=== PATIENT | female | born 1935 | race Caucasian/White ===

== ENCOUNTER 2019-03-18 15:39 | Inpatient (IN) | payer MEDICARE, OTHER ==
[~2019-03-18] VITALS: Ht 175.3 cm; Wt 78.5 kg
--- OUTSIDE RECORDS SUMMARY | 2019-03-18 15:42 | XMS REPORT | Clinical Summary ---
Author Author [facility] Address Unknown Phone Unavailable Care Team Providers Care Machinery Mover Name Role Phone Blane Estrella MD PCP Allergies Comments Active Allergy Reactions Severity Noted Date Fluconazole Hives 09/22/2018 Soy Hives 09/22/2018 Medications End Date Status Medication Sig Dispensed Refills Start Date Active metoprolol succinate XL Take 50 mg by 0 (TOPROL-XL) 50 mg 24 hr mouth 2 (two) tablet times a day. Active amlodipine-benazepril Take 1 0 (LOTREL 5-10) 5-10 mg per capsule by capsule mouth daily. Active omeprazole (PriLOSEC) 20 Take 20 mg by 0 MG capsule mouth daily. Active melatonin 3 mg tablet Take 6 mg by 0 mouth daily. Active loratadine (CLARITIN) 10 Take 10 mg by 0 mg tablet mouth daily. Active Problems Not on file Encounters Care Team Description Date Type Specialty Blane Britton MD Fecal impaction (HCC) (Primary Dx); Leukocytosis, unspecified type 09/22/2018 Emergency Emergency Medicine after 03/17/2018 Social History Date Tobacco Use Types Packs/Day Years Used Never Smoker Smokeless Tobacco: Never Used Drinks/Week oz/Week Comments Alcohol Use No Alcohol Habits Answer Date Recorded How often do you have a drink containing alcohol? Never 09/22/2018 How many drinks containing alcohol do you have on Not asked a typical day when you are drinking? How often do you have six or more drinks on one Not asked occasion? Sex Assigned at Date Recorded Not on file Industry Job Start Date Occupation Not on file Not on file Not on file Travel End Travel History Travel Start No recent travel history available. Last Filed Vital Signs Reading Time Taken Comments Vital Sign 179/86 09/22/2018 8:58 PM CDT Blood Pressure 97 09/22/2018 8:58 PM CDT Pulse 36.6 C (97.8 F) 09/22/2018 3:49 PM CDT Temperature 17 09/22/2018 8:58 PM CDT Respiratory Rate 99% 09/22/2018 8:58 PM CDT Oxygen Saturation - - Inhaled Oxygen Concentration - - Weight 174 cm (5' 8.5") 09/22/2018 1:10 PM CDT Height - - Body Mass Index Plan of Treatment Health Maintenance Due Date Last Done Comments SHINGLES VACCINES (#1) 1983 65+ PNEUMOCOCCAL VACCINE 1998 (1 of 2 - PCV13) INFLUENZA VACCINE 01/31/2019 Procedures Comments Procedure Name Priority Date/Time Associated Diagnosis URINALYSIS SCREEN AND Routine 09/22/2018 MICROSCOPY, WITH REFLEX 7:00 PM CDT TO CULTURE URINE CULTURE Routine 09/22/2018 7:[address] ABDOMEN PELVIS W STAT 09/22/2018 CONTRAST 6:02 PM CDT GENERAL Routine 09/22/2018 3:10 PM CDT ESTIMATED GFR STAT 09/22/2018 2:10 PM CDT LIPASE LEVEL STAT 09/22/2018 2:10 PM CDT COMPREHENSIVE METABOLIC STAT 09/22/2018 PANEL 2:10 PM CDT HC COMPLETE BLD COUNT STAT 09/22/2018 W/AUTO DIFF 2:10 PM CDT after 03/17/2018 Results * Urinalysis screen and microscopy, with reflex to culture (09/22/2018 7:00 PM CDT) Specimen site Clean catch [facility] Color, UA Yellow [facility] Appearance, UA Clear [facility] Specific 1.018 1.001 - 1.035 [facility] gravity, [facility] pH, UA 6.0 5.0 - 8.5 [facility] Protein, UA Negative Negative [facility] Glucose, UA Negative Negative [facility] Ketones, UA Negative Negative [facility] Bilirubin, UA Negative Negative [facility] Blood, UA Negative Negative [facility] Nitrite, UA Negative Negative [facility] Urobilinogen, Negative <2.0 [facility] Leukocyte Negative Negative [facility] esterase, UA [facility] WBC, UA <1 0 - 5 /HPF [facility] RBC, UA None seen 0 - 5 /HPF [facility] Bacteria, UA None seen None seen [facility] Yeast, UA None seen [facility] Yeast with None seen [facility] pseudohyphae, [facility] Specimen Urine Performing Organization Address City/[facility]/Zipcode Phone Number [facility] [place] [place] [address] PATHOLOGY AND GENOMIC MEDICINE [address] * Urine culture (09/22/2018 7:00 PM CDT) Urine culture SEE COMMENTComment: [facility] Bacteriuria screen negative. [facility] Specimen Urine Performing Organization Address City/[facility] [place] [address] PATHOLOGY AND GENOMIC MEDICINE [address] * CT Abdomen Pelvis W Contrast (09/22/2018 6:02 PM CDT) Specimen Narrative Performed At EXAMINATION:CT ABDOMEN PELVIS W CONTRAST [facility] CLINICAL HISTORY: 83 yearsFemale abd pain constipation TECHNIQUE: Multiple axial images of the abdomen and pelvis were obtained following intravenous administration of iodinated contrast. Sagittal and coronal computerized reformatted images were also obtained. CT imaging was performed with iterative reconstruction techniques and/or automated exposure control to reduce radiation dose. COMPARISON:None. IMPRESSION: LUNG BASES: Lung bases are unremarkable. ABDOMEN: Liver: Mild decreased attenuation of the liver is compatible with fatty infiltration. A tiny cyst in the medial segment left hepatic lobe is 5 mm. Gallbladder/Biliary: There is cholelithiasis.There is no evidence of intra or extrahepatic biliary ductal dilatation. Spleen: There is mild splenomegaly. The spleen is 13.2 cm in length. Pancreas: The pancreas is unremarkable. Adrenal Glands: Left adrenal is unremarkable. Right adrenal coarse calcification is likely related to old infection or hemorrhage and is 11 mm. Kidneys: There is a right renal cyst measuring 2 cm. Vascular: The abdominal aorta is nonaneurysmal. Nodes: No enlarged retroperitoneal or mesenteric lymphadenopathy. Bowel: There is a large amount of stool in the rectum which could be compatible with an impacted state in the appropriate clinical setting. Ascites/fluid collections: There is a small amount of presacral fluid. There is a small amount of presacral fluid. PELVIS: No mass, fluid collection or significant adenopathy. MUSCULOSKELETAL: No suspicious osseous lesions. The left breast is absent. 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 Tiny umbilical hernia containing fat only. SUMMARY: 1.Hepatic steatosis. 2.Cholelithiasis. 3.Tiny umbilical hernia 4.Mild splenomegaly 5.Large amount of stool in the rectum which could be compatible with a constipated state. [facility]-[id number] Procedure Note [facility], Radiology Results Incoming - 09/22/2018 6:13 PM CDT EXAMINATION: CT ABDOMEN PELVIS W CONTRAST CLINICAL HISTORY: 83 yearsFemale abd pain constipation TECHNIQUE: Multiple axial images of the abdomen and pelvis were obtained following intravenous administration of iodinated contrast. Sagittal and coronal computerized reformatted images were also obtained. CT imaging was performed with iterative reconstruction techniques and/or automated exposure control to reduce radiation dose. COMPARISON: None. IMPRESSION: LUNG BASES: Lung bases are unremarkable. ABDOMEN: Liver: Mild decreased attenuation of the liver is compatible with fatty infiltration. A tiny cyst in the medial segment left hepatic lobe is 5 mm. Gallbladder/Biliary: There is cholelithiasis.There is no evidence of intra or extrahepatic biliary ductal dilatation. Spleen: There is mild splenomegaly. The spleen is 13.2 cm in length. Pancreas: The pancreas is unremarkable. Adrenal Glands: Left adrenal is unremarkable. Right adrenal coarse calcification is likely related to old infection or hemorrhage and is 11 mm. Kidneys: There is a right renal cyst measuring 2 cm. Vascular: The abdominal aorta is nonaneurysmal. Nodes: No enlarged retroperitoneal or mesenteric lymphadenopathy. Bowel: There is a large amount of stool in the rectum which could be compatible with an impacted state in the appropriate clinical setting. Ascites/fluid collections: There is a small amount of presacral fluid. There is a small amount of presacral fluid. PELVIS: No mass, fluid collection or significant adenopathy. MUSCULOSKELETAL: No suspicious osseous lesions. The left breast is absent. 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 Tiny umbilical hernia containing fat only. SUMMARY: 1. Hepatic steatosis. 2. Cholelithiasis. 3. Tiny umbilical hernia 4. Mild splenomegaly 5. Large amount of stool in the rectum which could be compatible with a constipated state. [facility]-[id number] Performing Organization Address City/State/Zipcode Phone Number [facility] [address] [place] [address] * General (09/22/2018 3:10 PM CDT) Narrative Performed At Blane Britton MD 09/23/2018 10:53 AM General Performed by: Blane Britton MD Authorized by: Blane Britton MD Consent: Consent obtained:Verbal Consent given by:Patient Risks discussed:Pain (incomplete disimpaction) Alternatives discussed:No treatment and delayed treatment Indications: Indications:Constipation Anesthesia (see MAR for exact dosages): Anesthesia method:None Post-procedure details: Patient tolerance of procedure:Tolerated well, no immediate complications Comments: Pt was placed on her right side and I removed a significant amount of stool manually. * Estimated GFR (09/22/2018 2:10 PM CDT) Estimated GFR 79 mL/min/1.73 m2 [facility] Comment: DEMETRA SOARES [facility] G1 >=90 Normal or high G2 60-89Mildly decreased P3l11-37 Mildly to moderately decreased K9q84-80 Moderately to severely decreased G4 15-29Severely decreased G5 <15Kidney failure The eGFR was calculated using the Chronic Kidney Disease Epidemiology Collaboration (CKD-EPI) equation. Interpretation is based on recommendations of the National Kidney Foundation-Kidney Disease Outcomes Quality Initiative (NKF-KDOQI) published in 2014. Specimen Plasma specimen Performing Organization Address City/State/Zipcode Phone Number [facility] [address] [place] [address] PATHOLOGY AND GENOMIC MEDICINE [facility] DEMETRA SOARES [address] [place], [place] [id number] [place] [address] * CBC with platelet and differential (09/22/2018 2:10 PM CDT) WBC 22.7 (H) 4.2 - 11.0 k/uL [facility] RBC 5.25 4.04 - 5.86 m/uL [facility] HGB 13.9 11.5 - 15.3 g/dL [facility] HCT 44.0 34.0 - 45.0 % [facility] MCV 83.8 80.0 - 98.0 fL [facility] MCH 26.5 (L) 27.0 - 34.0 pg [facility] MCHC 31.6 31.5 - 36.5 g/dL [facility] RDW - SD 41.0 37.0 - 51.0 fL [facility] MPV 10.4 7.4 - 10.4 fL [facility] Platelet count 258 150 - 400 k/uL [facility] Nucleated RBC 0.00 /100 WBC [facility] Neutrophils 92.0 (H) 36.0 - 66.0 % [facility] Lymphocytes 3.3 (L) 24.0 - 44.0 % [facility] Monocytes 3.7 0.0 - 6.0 % [facility] Eosinophils 0.0 0.0 - 6.0 % [facility] Basophils 0.3 0.0 - 1.2 % [facility] Immature 0.7 0.0 - 1.0 % [facility] granulocytes [facility] Specimen Blood Performing Organization Address City/State/Zipcode Phone Number [place] [address] [place] [address] PATHOLOGY AND GENOMIC MEDICINE [place] [address] * Lipase level (09/22/2018 2:10 PM CDT) Lipase 14 13 - 60 U/L [facility] Specimen Plasma specimen Performing Organization Address City/[facility]/Zipcode Phone Number [place] [phone] [place] [address] PATHOLOGY AND GENOMIC MEDICINE [place] [address] [place], [place] [id number] [place] [address] * Comprehensive metabolic panel (09/22/2018 2:10 PM CDT) Sodium 139 135 - 150 mEq/L [facility] Potassium 3.4 (L) 3.5 - 5.0 mEq/L [facility] Chloride 98 98 - 112 mEq/L [facility] CO2 27 24 - 31 mmol/L [facility] Anion gap 14@ANIO 7 - 15 mEq/L [facility] BUN 12 7 - 18 mg/dL [facility] Creatinine 0.70 0.50 - 0.90 mg/dL [facility] Glucose 160 (H) 65 - 100 mg/dL [facility] Calcium 9.5 8.8 - 10.2 mg/dL [facility] Protein 7.5 6.3 - 8.3 g/dL [facility] Albumin 4.2 3.5 - 5.0 g/dL [facility] A/G ratio 1.3 0.7 - 3.8 [facility] Alkaline 148 (H) 0 - 104 U/L [facility] phosphatase [facility] AST 24 10 - 35 U/L [facility] ALT 22 5 - 50 U/L [facility] Total bilirubin 0.4 0.2 - 1.2 mg/dL [facility] Specimen Plasma specimen Performing Organization Address City/State/[facility] Phone Number [facility] [address] [place] [address] PATHOLOGY AND GENOMIC MEDICINE [facility] 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
[2019-03-18 16:48] LABS: BASOPHILS % 0.4 % (0.0-1.0); EOSINOPHILS # (AUTO) 0.2 (0.0-0.4); EOSINOPHILS % 1.6 % (0.0-6.0); HEMATOCRIT 43.3 % (34.2-44.1); HEMOGLOBIN 13.9 g/dL (12.0-16.0); LYMPHOCYTES # (AUTO) 1.5 (1.0-3.2); LYMPHOCYTES % 16.7 % (18.0-39.1); MEAN CORPUSCULAR HEMOGLOBIN 26.9 pg (28-32); MEAN CORPUSCULAR HGB CONC 32.1 g/dL (31-35); MEAN CORPUSCULAR VOLUME 83.9 fL (81-99); MONOCYTES # (AUTO) 0.5 (0.2-0.8); MONOCYTES % 5.4 % (4.4-11.3); NEUTROPHILS # (AUTO) 6.9 (2.1-6.9); NEUTROPHILS % 75.4 % (38.7-80.0); PLATELET COUNT 228 x10e3/uL (140-360); RED BLOOD COUNT 5.16 x10e6/uL (3.6-5.1); RED CELL DISTRIBUTION WIDTH 13.7 % (11.7-14.4)
[2019-03-18 16:53] LABS: INR 0.91; PROTHROMBIN TIME 12.7 seconds (11.9-14.5)
[2019-03-18 16:54] LABS: PARTIAL THROMBOPLASTIN TIME 30.7 seconds (23.8-35.5)
[2019-03-18 17:07] LABS: ALANINE AMINOTRANSFERASE 22 IU/L (0-55); ALBUMIN 3.7 g/dL (3.5-5.0); ALBUMIN/GLOBULIN RATIO 1.2 (0.8-2.0); ALKALINE PHOSPHATASE 114 IU/L (40-150); ANION GAP 16.5 mmol/L (8-16); BLOOD UREA NITROGEN 12 mg/dL (7-26); BUN/CREATININE RATIO 14 (6-25); CALCIUM 9.3 mg/dL (8.4-10.2); CARBON DIOXIDE 25 mmol/L (22-29); CHLORIDE 102 mmol/L (98-107); CREATINE KINASE 77 IU/L (29-168); CREATININE, SERUM 0.86 mg/dL (0.57-1.11); EST GLOMERULAR FILTRATION RATE > 60 ML/MIN (60-); GLUCOSE 185 mg/dL (74-118); POTASSIUM 3.5 mmol/L (3.5-5.1); SODIUM 140 mmol/L (136-145)
--- NOTE | 2019-03-18 17:18 | Diagnostic Imaging Report ---
EXAMINATION: CHEST 2 VIEWS INDICATION: Blurry vision COMPARISON: None FINDINGS: LINES/TUBES:None LUNGS:The lungs are mildly hyperinflated. Mild left apical pleural parenchymal thickening/scarring. No focal consolidation or pulmonary edema. PLEURA:No pleural effusion or pneumothorax. MEDIASTINUM:The cardiomediastinal silhouette appears normal in size and shape. Atherosclerotic calcifications of the thoracic aorta. BONES/SOFT TISSUES:No acute osseous injury. Surgical clips overlie the left axilla. ABDOMEN:No free air under the diaphragm. IMPRESSION: Mildly hyperinflated lungs. No focal pneumonia or pulmonary edema. Signed by: Brad Morton MD on 03/18/2019 5:15 PM
--- NOTE | 2019-03-18 17:20 | Diagnostic Imaging Report ---
CT BRAIN WO HISTORY: Blurry vision COMPARISON: None. Technique: Noncontrast axial scans were obtained from skull base to the vertex. Coronal and sagittal reconstructions obtained from the axial data. One or more of the following dose reduction techniques were used: Automated exposure control, adjustment of the mA and/or kV according to patient size, and/or utilization of iterative reconstruction technique. DISCUSSION: Scalp/Skull: Unremarkable. Brain sulci: Mildly prominent. Ventricles: Compensatory dilatation. Extra-axial spaces: No masses or fluid collections. Carotid siphon calcifications are present. Parenchyma: Focal loss of sweeney-white differentiation in the medial right occipital lobe, along the posterior right calcarine sulcus, with mild local mass effect is concerning for acute ischemia. Mild bilateral deep white matter hypodensity is likely chronic microvascular ischemic change. 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 There is also an old small right cerebellar cortical infarct. Otherwise, no masses, hemorrhage, or large vascular territory acute infarct. Dural sinuses: No abnormal densities. Sellar/Suprasellar region: Intact. Skull base: Intact. Incidental findings: Bilateral ocular lens replacement. IMPRESSION: 1. Focal loss of sweeney-white differentiation in the medial right occipital lobe is concerning for acute ischemia. No evidence for hemorrhagic conversion. 2. Mild supratentorial chronic microvascular ischemic change. Mild generalized cerebral volume loss. Signed by: Dr. Chirag De M.D. on 03/18/2019 5:17 PM
[2019-03-18] MEDS ORDERED: OMEPRAZOLE20 MG (19:45)
[2019-03-18] MEDS ORDERED: MELATONIN 5 MG1 EACH (19:45)
[2019-03-18] MEDS ORDERED: AMLODIPINE BESYL5 MG (19:45)
[2019-03-18] MEDS ORDERED: METOPROLOL SUCC50 MG (19:45)
--- NOTE | 2019-03-18 19:51 | NUR ---
dr. jacome in to see pt and has already told her about being admitted
[2019-03-18] MEDS ORDERED: ASPIRIN 81 MG CHEW TAB PO ONE (20:00)
[2019-03-18] MEDS ORDERED: ONDANSETRON HCL INJ 2MG/ML 2ML 2 MG/ML VIAL IV PRN (20:00)
--- NOTE | 2019-03-18 20:03 | NUR ---
home meds obtained from patient and entered into the computer
--- OUTSIDE RECORDS SUMMARY | 2019-03-18 20:38 | XMS REPORT ---
Author Author [facility] Address Unknown Phone Unavailable Care Team Providers Care Biology Department Chair Name Role Phone Jaylin JESSICA Unavailable Unavailable Problems This patient has no known problems. Allergies, Adverse Reactions, Alerts This patient has no known allergies or adverse reactions. Medications This patient has no known medications. Results Test Description Test Time Test Comments Text Results Atomic Results Result Comments CHEST 2 VIEWS 2019-03-18 17:14:00 [place] [address] Patient Name: REUBEN HEARD MR #: [id number] : 1935 Age/Sex: 83/F Req #: [id number] Adm Physician: Ordered by: DEEP JESSICA MD Report #: [id number] Location: ER Room/Bed: Procedure: [id number] DX/CHEST 2 VIEWS Exam Date: 03/18/19 Exam Time: 1640 REPORT STATUS: Signed EXAMINATION: CHEST 2 VIEWS INDICATION: Blurry vision COMPARISON: None FINDINGS: LINES/TUBES:None LUNGS:The lungs are mildly hyperinflated. Mild left apical pleural parenchymal thickening/scarring. No focal consolidation or pulmonary edema. PLEURA:No pleural effusion or pneumothorax. MEDIASTINUM:The cardiomediastinal silhouette appears normal in size and shape. Atherosclerotic calcifications of the thoracic aorta. BONES/SOFT TISSUES:No acute osseous injury. Surgical clips overlie the left axilla. ABDOMEN:No free air under the diaphragm. IMPRESSION: Mildly hyperinflated lungs. No focal pneumonia or pulmonary edema. Signed by: Rosio Reynoso MD on 03/18/2019 5:15 PM Dictated By: ROSIO REYNOSO MD 14 Transcribed By: RENÉE on 03/18/191714 COPY TO: DEEP JESSICA MD CT BRAIN WO 2019-03-18 17:05:00 [place] [address] Patient Name: REUBEN HEARD MR #: [id number] : 1935 Age/Sex: 83/F Req #: [id number] Adm Physician: Ordered by: DEEP JESSICA MD Report #: [id number] Location: ER Room/Bed: Procedure: [id number] CT/CT BRAIN WO Exam Date: 03/18/19 Exam Time: 1620 REPORT STATUS: Signed CT BRAIN WO HISTORY: Blurry vision COMPARISON: None. Technique: Noncontrast axial scans were obtained from skull base to the vertex. Coronal and sagittal reconstructions obtained from the axial data. One or more of the following dose reduction techniques were used: Automated exposure control, adjustment of the mA and/or kV according to patient size, and/or utilization of iterative reconstruction technique. DISCUSSION: Scalp/Skull: Unremarkable. Brain sulci: Mildly prominent. Ventricles: Compensatory dilatation. Extra-axial spaces: No masses or fluid collections. Carotid siphon calcifications are present. Parenchyma: Focal loss of sweeney-white differentiation in the medial right occipital lobe, along the posterior right calcarine sulcus, with mild local mass effect is concerning for acute ischemia. Mild bilateral deep white matter hypodensity is likely chronic microvascular ischemic change. 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 There is also an old small right c erebellar cortical infarct. Otherwise, no masses, hemorrhage, or large vascular territory acute infarct. Dural sinuses: No abnormal densities. Sellar/Suprasellar region: Intact. Skull base: Intact. Incidental findings: Bilateral ocular lens replacement. IMPRESSION: 1. Focal loss of sweeney- white differentiation in the medial right occipital lobe is concerning for acute ischemia. No evidence for hemorrhagic conversion. 2. Mild supratentorial chronic microvascular ischemic change. Mild generalized cerebral volume loss. Signed by: Dr. Chirag De M.D. on 03/18/2019 5:17 PM Dictated By: CHIRAG DE MD 16 Transcribed By: RENÉE on 03/18/191716 COPY TO: DEEP JESSICA MD
--- OUTSIDE RECORDS SUMMARY | 2019-03-18 20:38 | XMS REPORT | Clinical Summary ---
Author Author [facility] Address Unknown Phone Unavailable Care Team Providers Care Grinder Name Role Phone Blane Estrella MD PCP [...] 7:00 PM CDT) Specimen site Clean catch [facility] Color, UA Yellow [facility] Appearance, UA Clear [facility] Specific 1.018 1.001 - 1.035 [place] gravity, [facility] pH, UA 6.0 5.0 - 8.5 [facility] Protein, UA Negative Negative [facility] Glucose, UA Negative Negative [facility] Ketones, UA Negative Negative [facility] Bilirubin, UA Negative Negative [facility] Blood, UA Negative Negative [facility] Nitrite, UA Negative Negative [facility] Urobilinogen, Negative <2.0 [facility] Leukocyte Negative Negative [place] esterase, UA [facility] WBC, UA <1 0 - 5 /HPF [facility] RBC, UA None seen 0 - 5 /HPF [facility] Bacteria, UA None seen None seen [facility] Yeast, UA None seen [facility] Yeast with None seen [place] pseudohyphae, [facility] Specimen Urine Performing Organization Address City/[facility]/Zipcode Phone Number [facility] [place] [address] PATHOLOGY AND GENOMIC MEDICINE [address] * Urine culture (09/22/2018 7:00 PM CDT) Urine culture SEE COMMENTComment: [place] Bacteriuria screen negative. [facility] Specimen Urine Performing Organization Address City/[facility] [[email or web address] [address] PATHOLOGY AND GENOMIC MEDICINE [address] * CT Abdomen Pelvis W Contrast [...] could be compatible with a constipated state. [facility]-[id number] Procedure Note [facility], Radiology Results Incoming - 09/22/2018 6:13 [...] could be compatible with a constipated state. [facility]-[id number] Performing Organization Address City/State/Zipcode Phone Number [facility] [address] [place] [address] * General (09/22/2018 3:10 PM CDT) Narrative [...] PM CDT) Estimated GFR 79 mL/min/1.73 m2 [place] Comment: DEMETRA SOARES [facility] G1 >=90 Normal or high G2 60-89Mildly decreased [id number] Mildly to moderately decreased [id number] Moderately to severely decreased G4 15-29Severely decreased G5 <15Kidney failure The eGFR was calculated using the Chronic Kidney Disease Epidemiology Collaboration (CKD-EPI) equation. Interpretation is based on recommendations of the National Kidney Foundation-Kidney Disease Outcomes Quality Initiative (NKF-KDOQI) published in 2014. Specimen Plasma specimen Performing Organization Address City/State/Zipcode Phone Number [facility] [address] [place] [address] PATHOLOGY AND GENOMIC MEDICINE [place] DEMETRA SOARES [address] [place], [place] [id number] [place] [address] * CBC with platelet and differential (09/22/2018 2:10 PM CDT) WBC 22.7 (H) 4.2 - 11.0 k/uL [facility] RBC 5.25 4.04 - 5.86 m/uL [facility] HGB 13.9 11.5 - 15.3 g/dL [facility] HCT 44.0 34.0 - 45.0 % [facility] MCV 83.8 80.0 - 98.0 fL [facility] MCH 26.5 (L) 27.0 - 34.0 pg [facility] MCHC 31.6 31.5 - 36.5 g/dL [facility] RDW - SD 41.0 37.0 - 51.0 fL [facility] MPV 10.4 7.4 - 10.4 fL [facility] Platelet count 258 150 - 400 k/uL [facility] Nucleated RBC 0.00 /100 WBC [facility] Neutrophils 92.0 (H) 36.0 - 66.0 % [facility] Lymphocytes 3.3 (L) 24.0 - 44.0 % [facility] Monocytes 3.7 0.0 - 6.0 % [facility] Eosinophils 0.0 0.0 - 6.0 % [facility] Basophils 0.3 0.0 - 1.2 % [facility] Immature 0.7 0.0 - 1.0 % [place] granulocytes [facility] Specimen Blood Performing Organization Address City/State/Zipcode Phone Number [place] [address] [place] [address] PATHOLOGY AND GENOMIC MEDICINE [place] [address] * Lipase level (09/22/2018 2:10 PM CDT) Lipase 14 13 - 60 U/L [facility] Specimen Plasma specimen Performing Organization Address City/[facility]/Zipcode Phone Number [place] [phone] [place] [address] PATHOLOGY AND GENOMIC MEDICINE [place] [address] [place], [place] [id number] [place] [address] * Comprehensive metabolic panel (09/22/2018 2:10 PM CDT) Sodium 139 135 - 150 mEq/L [facility] Potassium 3.4 (L) 3.5 - 5.0 mEq/L [facility] Chloride 98 98 - 112 mEq/L [facility] CO2 27 24 - 31 mmol/L [facility] Anion gap 14@ANIO 7 - 15 mEq/L [facility] BUN 12 7 - 18 mg/dL [facility] Creatinine 0.70 0.50 - 0.90 mg/dL [facility] Glucose 160 (H) 65 - 100 mg/dL [facility] Calcium 9.5 8.8 - 10.2 mg/dL [facility] Protein 7.5 6.3 - 8.3 g/dL [facility] Albumin 4.2 3.5 - 5.0 g/dL [facility] A/G ratio 1.3 0.7 - 3.8 [facility] Alkaline 148 (H) 0 - 104 U/L [place] phosphatase [facility] AST 24 10 - 35 U/L [facility] ALT 22 5 - 50 U/L [facility] Total bilirubin 0.4 0.2 - 1.2 mg/dL [facility] Specimen Plasma specimen Performing Organization Address City/State/[facility] [email or web address] Phone Number [facility] DEPARTMENT OF [address] [place] [address] PATHOLOGY AND GENOMIC MEDICINE [facility] [address] after 03/17/2018 Insurance Type Payer Benefit Subscriber ID Effective Phone Address Plan / Dates Group HMO HUMANA MEDICARE HUMANA HMO xxxxxxxxx [id number] GOLD PLUS resent MEDICARE Advance Directives For more information, please contact: [phone] Patient Patient Care Secretary Explanation Type Date Recorded Advance Directives, 09/22/2018 5:25 PM Living Will and Medical Power of Windows [employer]
[2019-03-18 22:45] VITALS: BP 173/83
[2019-03-19] VITALS (10 sets, daily range): BP systolic 151–173; BP diastolic 76–94
[2019-03-19] MEDS ORDERED: INFLUENZA VIRUS VAC SPLIT INJ 0.5 ML SYR IM SCH (00:42)
--- NOTE | 2019-03-19 01:45 | NUR ---
PT IS TRANSFERRED FROM ER AOX3 RESPIRATIONS ARE EVEN AND UNLABORED .SKIN WARM AND DRY TO TOUCH DENIES PAIN ORIENTED THE PT TO THE ENVIRONMENT ASSESSMENT DONE .TELE 24 SHOWS SR .FAMILY AT THE BEDSIDE CALL LIGHT WITH IN REACH.CONTINUE TO MONITOR
--- NOTE | 2019-03-19 05:32 | NUR ---
PT RESTED DURING THE NIGHT .DENIES PAIN CALL LIGHT WITH IN REACH . CALL LIGHT WITH IN REACH CONTINUE TO MONITOR
[2019-03-19 06:19] LABS: BASOPHILS % 0.4 % (0.0-1.0); EOSINOPHILS # (AUTO) 0.2 (0.0-0.4); EOSINOPHILS % 2.1 % (0.0-6.0); HEMATOCRIT 40.2 % (34.2-44.1); HEMOGLOBIN 12.8 g/dL (12.0-16.0); LYMPHOCYTES # (AUTO) 1.5 (1.0-3.2); LYMPHOCYTES % 21.7 % (18.0-39.1); MEAN CORPUSCULAR HEMOGLOBIN 27.1 pg (28-32); MEAN CORPUSCULAR HGB CONC 31.8 g/dL (31-35); MEAN CORPUSCULAR VOLUME 85.2 fL (81-99); MONOCYTES # (AUTO) 0.5 (0.2-0.8); MONOCYTES % 7.4 % (4.4-11.3); NEUTROPHILS # (AUTO) 4.8 (2.1-6.9); NEUTROPHILS % 68.1 % (38.7-80.0); PLATELET COUNT 189 x10e3/uL (140-360); RED BLOOD COUNT 4.72 x10e6/uL (3.6-5.1); RED CELL DISTRIBUTION WIDTH 13.7 % (11.7-14.4)
[2019-03-19 06:49] LABS: CHOL/HDL RATIO 4.4 (3.0-3.6)
[2019-03-19 06:51] LABS: CREATINE KINASE MB 1.6 ng/mL (0-5.0)
--- NOTE | 2019-03-19 07:00 | NUR ---
RECEIVED PATIENT RESTING IN BED. NO ACUTE DISTRESS NOTED, RESPIRATIONS EVEN AND UNLABORED. CALL LIGHT WITHIN REACH. BED IN THE LOWEST POSITION.
--- NOTE | 2019-03-19 07:26 | NUR ---
PT C/O DIFFICULTY SEEING WITH RT EYE .BEDSIDE REPORT GIVEN TO THE ONCOMING NURSE
[2019-03-19] MEDS: AMLODIPINE BESYLATE 5 MG TAB PO SCH (08:32)
[2019-03-19] MEDS: METOPROLOL TARTRATE 25 MG TAB PO SCH ×2 (08:32→17:10)
[2019-03-19] MEDS: PANTOPRAZOLE SOD 40 MG TABEC PO SCH (08:32)
[2019-03-19] MEDS: ASPIRIN 81 MG ENTERIC COATED PO SCH (08:32)
[2019-03-19] MEDS ORDERED: OMEPRAZOLE 20 MG CAP PO SCH (09:00)
--- NOTE | 2019-03-19 13:39 | Diagnostic Imaging Report ---
EXAMINATION: Brain MRI and MR angiogram of the [place] and Neck . CLINICAL HISTORY: Blurry vision, head/eye pain. Evaluate for acute stroke with left homonymous hemianopsia and right cranial nerve palsy. COMPARISON: Head CT of 03/18/2019 TECHNIQUE: Brain: Sagittal T2; axial DWI, T2, FLAIR, T1-IR, T2 gradient echo; coronal FLAIR. MRAs: 3D TOF and 2D-TOF images were obtained of the brain and neck. MR angiogram images were reviewed in the [facility] PACS system as the images were incompletely transferred to [facility] PACS. BRAIN MRI FINDINGS: Parenchyma: 1. Cortical and subcortical FLAIR hyperintensity and restricted diffusion in the right posterior/medial occipital visual cortex consistent with acute infarct, no hemorrhagic component or significant associated mass effect. 2. Few scatter and mildly confluent periventricular white matter T2 hyperintense foci, most likely nonspecific chronic microvascular ischemic changes. 3. Gliosis around the left occipital horn with compensatory dilatation likely represents sequela from remote ischemic interval. 4. Tiny chronic cortical infarcts in the bilateral cerebellar hemispheres. 5. Small chronic lacunar infarcts in the right head of the caudate nucleus. 6. No mass, hemorrhage, acute or chronic infarcts. Skull: Unremarkable. Vessels: Expected flow voids present in the major arteries and dural sinuses. Extra-axial spaces: No abnormal signal intensity or mass effect. Brain volume: Prominence of the left greater than right right sylvian fissures. Otherwise no disproportionate lobar atrophy. Ventricles: No hydrocephalus or displacement. Foramen magnum: Unremarkable. Sella: Unremarkable. Paranasal / mastoid sinuses: No significant inflammatory disease. MRA OF THE [place] : Approximately 5 mm superior and anteriorly oriented aneurysm at the right supraclinoid paraophthalmic segment of the right ICA, measuring about 5 mm base to the dome, and approximately 4 mm wide neck. Occlusion of the right CORRECTIONAL COUNSELOR/CASE MANAGER P2 segment with probable thrombus within it which measures about 5 mm length, partial distal reconstitution of the P3 segment which is diffusely narrow. Mild diffuse narrowing of the distal right MCA M1 segment without significant stenosis or occlusion. Otherwise the distal internal carotid, distal vertebral, basilar, and cerebral arteries are patent. No significant stenosis, occlusion, other aneurysm, or arteriovenous malformation is seen. Anatomic variation: Anterior Communicating Artery: Patent Posterior Communicating Arteries: Not well visualized Vertebral arteries: Codominant MRA OF THE NECK: If present, stenosis of the carotid bulbs is measured based on NASCET criteria i.e area of maximum stenosis compared to the cervical ICA distal to the bulb. Aortic arch and origin of the vessels: Unremarkable. Right Carotid Artery: The common carotid, carotid bulb, internal and external carotid arteries at the level of the neck are normal in caliber, and patent, no evidence of stenoses. Left Carotid Artery: The common carotid, carotid bulb, internal and external carotid arteries at the level of the neck are normal in caliber, and patent, no evidence of stenoses. Vertebral Arteries: Poor visualization of the horizontal segment of the right V3 segment compared to the left side, partially technically related, additional underlying narrowing/thrombosis cannot be excluded. Otherwise both are normal in morphology and caliber. Both are codominant. No significant stenosis is seen. IMPRESSION: Brain MRI: 1. Acute right posterior occipital cortical infarct, which explains patient's acute visual symptoms. 2. Mild chronic microvascular ischemic changes and small chronic infarcts as detailed above. MR angiogram of the head and neck: 1. Acute occlusion of the right posterior cerebral artery at the P2 segment in keeping with acute right occipital infarct. 2. Questionable partial occlusion of the right vertebral artery V3 segment versus artifactual, a CT angiogram of the head and neck with contrast or MR angiogram of the neck with contrast can be obtained for further evaluation if clinically indicated. 3. Otherwise no occlusion of the carotid arteries in the head or neck. 4. 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 Signed by: Dr. Allison Feliciano M.D. on 03/19/2019 1:36 PM
--- NOTE | 2019-03-19 13:39 | Diagnostic Imaging Report ---
EXAMINATION: Brain MRI and MR angiogram of the [place] and [place]ck . CLINICAL HISTORY: Blurry vision, head/eye pain. Evaluate for acute stroke with left homonymous hemianopsia and right cranial nerve palsy. COMPARISON: Head CT of 03/18/2019 TECHNIQUE: Brain: Sagittal T2; axial DWI, T2, FLAIR, T1-IR, T2 gradient echo; coronal FLAIR. MRAs: 3D TOF and 2D-TOF images were obtained of the brain and neck. MR angiogram images were reviewed in the [facility] PACS system as the images were incompletely transferred to [facility] PACS. BRAIN MRI FINDINGS: Parenchyma: 1. Cortical and subcortical FLAIR hyperintensity and restricted diffusion in the right posterior/medial occipital visual cortex consistent with acute infarct, no hemorrhagic component or significant associated mass effect. 2. Few scatter and mildly confluent periventricular white matter T2 hyperintense foci, most likely nonspecific chronic microvascular ischemic changes. 3. Gliosis around the left occipital horn with compensatory dilatation likely represents sequela from remote ischemic interval. 4. Tiny chronic cortical infarcts in the bilateral cerebellar hemispheres. 5. Small chronic lacunar infarcts in the right head of the caudate nucleus. 6. No mass, hemorrhage, acute or chronic infarcts. Skull: Unremarkable. Vessels: Expected flow voids present in the major arteries and dural sinuses. Extra-axial spaces: No abnormal signal intensity or mass effect. Brain volume: Prominence of the left greater than right right sylvian fissures. Otherwise no disproportionate lobar atrophy. Ventricles: No hydrocephalus or displacement. Foramen magnum: Unremarkable. Sella: Unremarkable. Paranasal / mastoid sinuses: No significant inflammatory disease. 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 Occlusion of the right DIRECTOR CORRECTIONAL AGENCY P2 segment with probable thrombus within it which measures about 5 mm length, partial distal reconstitution of the P3 segment which is diffusely narrow. Mild diffuse narrowing of the distal right MCA M1 segment without significant stenosis or occlusion. Otherwise the distal internal carotid, distal vertebral, basilar, and cerebral arteries are patent. No significant stenosis, occlusion, other aneurysm, or arteriovenous malformation is seen. Anatomic variation: Anterior Communicating Artery: Patent Posterior Communicating Arteries: Not well visualized Vertebral arteries: Codominant MRA OF THE NECK: If present, stenosis of the carotid bulbs is measured based on NASCET criteria i.e area of maximum stenosis compared to the cervical ICA distal to the bulb. Aortic arch and origin of the vessels: Unremarkable. Right Carotid Artery: The common carotid, carotid bulb, internal and external carotid arteries at the level of the neck are normal in caliber, and patent, no evidence of stenoses. Left Carotid Artery: The common carotid, carotid bulb, internal and external carotid arteries at the level of the neck are normal in caliber, and patent, no evidence of stenoses. Vertebral Arteries: Poor visualization of the horizontal segment of the right V3 segment compared to the left side, partially technically related, additional underlying narrowing/thrombosis cannot be excluded. Otherwise both are normal in morphology and caliber. Both are codominant. No significant stenosis is seen. IMPRESSION: Brain MRI: 1. Acute right posterior occipital cortical infarct, which explains patient's acute visual symptoms. 2. Mild chronic microvascular ischemic changes and small chronic infarcts as detailed above. MR angiogram of the head and neck: 1. Acute occlusion of the right posterior cerebral artery at the P2 segment in keeping with acute right occipital infarct. 2. Questionable partial occlusion of the right vertebral artery V3 segment versus artifactual, a CT angiogram of the head and neck with contrast or MR angiogram of the neck with contrast can be obtained for further evaluation if clinically indicated. 3. Otherwise no occlusion of the carotid arteries in the head or neck. 4. 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 Signed by: Dr. Allison Feliciano M.D. on 03/19/2019 1:36 PM
--- NOTE | 2019-03-19 13:39 | Diagnostic Imaging Report ---
EXAMINATION: Brain MRI and MR angiogram of the [place] and Neck . CLINICAL HISTORY: Blurry vision, head/eye pain. Evaluate for acute stroke with left homonymous hemianopsia and right cranial nerve palsy. COMPARISON: Head CT of 03/18/2019 TECHNIQUE: Brain: Sagittal T2; axial DWI, T2, FLAIR, T1-IR, T2 gradient echo; coronal FLAIR. MRAs: 3D TOF and 2D-TOF images were obtained of the brain and neck. MR angiogram images were reviewed in the [facility] PACS system as the images were incompletely transferred to [facility] PACS. BRAIN MRI FINDINGS: Parenchyma: 1. Cortical and subcortical FLAIR hyperintensity and restricted diffusion in the right posterior/medial occipital visual cortex consistent with acute infarct, no hemorrhagic component or significant associated mass effect. 2. Few scatter and mildly confluent periventricular white matter T2 hyperintense foci, most likely nonspecific chronic microvascular ischemic changes. 3. Gliosis around the left occipital horn with compensatory dilatation likely represents sequela from remote ischemic interval. 4. Tiny chronic cortical infarcts in the bilateral cerebellar hemispheres. 5. Small chronic lacunar infarcts in the right head of the caudate nucleus. 6. No mass, hemorrhage, acute or chronic infarcts. Skull: Unremarkable. Vessels: Expected flow voids present in the major arteries and dural sinuses. Extra-axial spaces: No abnormal signal intensity or mass effect. Brain volume: Prominence of the left greater than right right sylvian fissures. Otherwise no disproportionate lobar atrophy. Ventricles: No hydrocephalus or displacement. Foramen magnum: Unremarkable. Sella: Unremarkable. Paranasal / mastoid sinuses: No significant inflammatory disease. MRA OF THE [place] : Approximately 5 mm superior and anteriorly oriented aneurysm at the right supraclinoid paraophthalmic segment of the right ICA, measuring about 5 mm base to the dome, and approximately 4 mm wide neck. Occlusion of the right ORE CRUSHER P2 segment with probable thrombus within it which measures about 5 mm length, partial distal reconstitution of the P3 segment which is diffusely narrow. Mild diffuse narrowing of the distal right MCA M1 segment without significant stenosis or occlusion. Otherwise the distal internal carotid, distal vertebral, basilar, and cerebral arteries are patent. No significant stenosis, occlusion, other aneurysm, or arteriovenous malformation is seen. Anatomic variation: Anterior Communicating Artery: Patent Posterior Communicating Arteries: Not well visualized Vertebral arteries: Codominant MRA OF THE NECK: If present, stenosis of the carotid bulbs is measured based on NASCET criteria i.e area of maximum stenosis compared to the cervical ICA distal to the bulb. Aortic arch and origin of the vessels: Unremarkable. Right Carotid Artery: The common carotid, carotid bulb, internal and external carotid arteries at the level of the neck are normal in caliber, and patent, no evidence of stenoses. Left Carotid Artery: The common carotid, carotid bulb, internal and external carotid arteries at the level of the neck are normal in caliber, and patent, no evidence of stenoses. Vertebral Arteries: Poor visualization of the horizontal segment of the right V3 segment compared to the left side, partially technically related, additional underlying narrowing/thrombosis cannot be excluded. Otherwise both are normal in morphology and caliber. Both are codominant. No significant stenosis is seen. IMPRESSION: Brain MRI: 1. Acute right posterior occipital cortical infarct, which explains patient's acute visual symptoms. 2. Mild chronic microvascular ischemic changes and small chronic infarcts as detailed above. MR angiogram of the head and neck: 1. Acute occlusion of the right posterior cerebral artery at the P2 segment in keeping with acute right occipital infarct. 2. Questionable partial occlusion of the right vertebral artery V3 segment versus artifactual, a CT angiogram of the head and neck with contrast or MR angiogram of the neck with contrast can be obtained for further evaluation if clinically indicated. 3. Otherwise no occlusion of the carotid arteries in the head or neck. 4. 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 Signed by: Dr. Allison Feliciano M.D. on 03/19/2019 1:36 PM
[2019-03-19 16:43] LABS: CREATINE KINASE 44 IU/L (29-168)
--- NOTE | 2019-03-19 19:35 | NUR ---
RECEIVED PATIENT IN BED AOX3 ., RESPIRATIONS EVEN AND UNLABORED. FAMILY AT THE BEDSIDE DENIES PAIN OR DISCOMFORT AT THIS TIME. CALL LIGHT WITHIN REACH. BED IN THE LOWEST POSITION
--- NOTE | 2019-03-19 19:40 | NUR ---
Report given to oncoming nurse. Walking rounds done. Patient is resting in bed. No acute distress noted. No s/s of pain noted. Call light within reach. Bed in the lowest position.
[2019-03-20] VITALS (7 sets, daily range): BP systolic 118–169; BP diastolic 64–88
[2019-03-20] MEDS ORDERED: POLYETHYLENE GLYCOL 3350 17 GM PACK PO PRN (00:30)
--- NOTE | 2019-03-20 06:33 | NUR ---
PT RESTED DURING THE NIGHT .DENIES PAIN .CALL LIGHT WITH IN REACH .CONTINUE TO MONITOR
[2019-03-20 07:26] LABS: ANION GAP 11.9 mmol/L (8-16); BLOOD UREA NITROGEN 18 mg/dL (7-26); BUN/CREATININE RATIO 21 (6-25); CALCIUM 8.9 mg/dL (8.4-10.2); CARBON DIOXIDE 27 mmol/L (22-29); CHLORIDE 104 mmol/L (98-107); CREATININE, SERUM 0.84 mg/dL (0.57-1.11); EST GLOMERULAR FILTRATION RATE > 60 ML/MIN (60-); GLUCOSE 95 mg/dL (74-118); MAGNESIUM 1.7 MG/DL (1.3-2.1); POTASSIUM 3.9 mmol/L (3.5-5.1); SODIUM 139 mmol/L (136-145)
--- NOTE | 2019-03-20 07:26 | NUR ---
BEDSIDE REPORT GIVEN TO THE ONCOMING NURSE
--- NOTE | 2019-03-20 07:30 | NUR ---
Pt received in bed. AOx4 and able to verbalize needs. Denies any pain at this time. Pt is able to ambulate with use of cane.
[2019-03-20 07:48] LABS: THYROID STIMULATING HORMONE 0.713 uIU/mL (0.350-4.940)
[2019-03-20] MEDS ORDERED: AMLODIPINE BESYLATE 5 MG TAB PO SCH (09:00)
[2019-03-20] MEDS ORDERED: PANTOPRAZOLE SOD 40 MG TABEC PO SCH (09:00)
[2019-03-20] MEDS ORDERED: METOPROLOL SUCCINATE 50 MG TAB XL PO SCH (09:00)
[2019-03-20] MEDS: PANTOPRAZOLE SOD 40 MG TABEC PO SCH (09:18)
[2019-03-20] MEDS: DOCUSATE SODIUM 100 MG CAP PO SCH ×2 (09:19→15:59)
[2019-03-20] MEDS: LORATADINE 10 MG TAB PO SCH (09:19)
[2019-03-20] MEDS: ASPIRIN 81 MG ENTERIC COATED PO SCH (09:19)
[2019-03-20] MEDS: METOPROLOL TARTRATE 25 MG TAB PO SCH (09:19)
[2019-03-20] MEDS: AMLODIPINE BESYLATE 5 MG TAB PO SCH (09:19)
[2019-03-20] MEDS ORDERED: HYDRALAZINE HCL 20 MG/ML VIAL IV PRN (18:30)
[2019-03-20] MEDS ORDERED: ACETAMINOPHEN 325 MG TAB PO PRN (18:30)
[2019-03-20] MEDS ORDERED: ONDANSETRON HCL INJ 2MG/ML 2ML 2 MG/ML VIAL IV PRN (18:30)
[2019-03-20] MEDS ORDERED: MELATONIN 5 MG TABLET PO PRN (18:30)
--- NOTE | 2019-03-20 19:20 | NUR ---
Completed BS report with morning nurse. Pt alert to name. Lying in bed HOB 45 degrees. Denies pain at this time. Call [place] within reach. Bed alarm on. Will continue to monitor.
[2019-03-20] MEDS ORDERED: MELATONIN 5 MG TABLET PO SCH (21:00)
[2019-03-21] VITALS: BP 148/88
[2019-03-21 03:14] LABS: BASOPHILS % 0.5 % (0.0-1.0); EOSINOPHILS # (AUTO) 0.2 (0.0-0.4); EOSINOPHILS % 2.1 % (0.0-6.0); HEMATOCRIT 39.6 % (34.2-44.1); LYMPHOCYTES # (AUTO) 1.6 (1.0-3.2); MEAN CORPUSCULAR HEMOGLOBIN 27.5 pg (28-32); MEAN CORPUSCULAR HGB CONC 32.8 g/dL (31-35); MEAN CORPUSCULAR VOLUME 83.9 fL (81-99); MONOCYTES # (AUTO) 0.6 (0.2-0.8); MONOCYTES % 8.2 % (4.4-11.3); NEUTROPHILS # (AUTO) 5.2 (2.1-6.9); NEUTROPHILS % 67.7 % (38.7-80.0); PLATELET COUNT 194 x10e3/uL (140-360); RED BLOOD COUNT 4.72 x10e6/uL (3.6-5.1); RED CELL DISTRIBUTION WIDTH 13.6 % (11.7-14.4)
[2019-03-21 03:32] LABS: ANION GAP 12.8 mmol/L (8-16); BLOOD UREA NITROGEN 18 mg/dL (7-26); BUN/CREATININE RATIO 22 (6-25); CARBON DIOXIDE 26 mmol/L (22-29); CHLORIDE 103 mmol/L (98-107); CREATININE, SERUM 0.82 mg/dL (0.57-1.11); EST GLOMERULAR FILTRATION RATE > 60 ML/MIN (60-); GLUCOSE 110 mg/dL (74-118); POTASSIUM 3.8 mmol/L (3.5-5.1); SODIUM 138 mmol/L (136-145)
[2019-03-21 04:00] VITALS: BP 143/82
--- NOTE | 2019-03-21 06:28 | NUR ---
Patient resting quietly in bed with eyes closed. HOB 45 degrees. RR even and unlabored, 18. Call [place] within reach.
[2019-03-21] MEDS ORDERED: ASPIRIN EC81 MG PO (06:44)
[2019-03-21] MEDS ORDERED: TOPROL XL50 MG PO (06:44)
[2019-03-21] MEDS ORDERED: PANTOPRAZOLE SOD 40 MG TABEC PO SCH (07:30)
[2019-03-21 07:49] VITALS: BP 123/89
[2019-03-21 08:00] VITALS: BP 123/89
[2019-03-21] MEDS: DOCUSATE SODIUM 100 MG CAP PO SCH (08:36)
[2019-03-21] MEDS: ASPIRIN 81 MG ENTERIC COATED PO SCH (08:36)
[2019-03-21] MEDS: LORATADINE 10 MG TAB PO SCH (08:36)
[2019-03-21] MEDS: AMLODIPINE BESYLATE 5 MG TAB PO SCH (08:36)
[2019-03-21] MEDS ORDERED: METOPROLOL SUCCINATE 50 MG TAB XL PO SCH (09:00)
[2019-03-21 11:49] VITALS: BP 148/73
[2019-03-21] MEDS ORDERED: SIMVASTATIN20 MG PO (14:06)
[2019-03-21] MEDS ORDERED: INFLUENZA VIRUS VAC SPLIT INJ 0.5 ML SYR IM ONE (15:00)
--- NOTE | 2019-03-22 22:26 | Consultation ---
DATE OF CONSULTATION: 03/21/2019 Neurology Consult Note HISTORY OF PRESENT ILLNESS: Ms. Rowland is an 83-year-old right-hand dominant woman with past medical history significant for hypertension, admitted to [facility] on March 18, 2019, with a left homonymous hemianopsia. On the day of admission, the patient noted, "problems with my eyes not focusing." Ms. Rowland endorsed pain behind the right eye as well. She had experienced similar pain 2 weeks ago and was diagnosed with a sinus infection by her primary care physician for which she was treated with oral antibiotics. When asked if she noted a visual field cut, the patient responds in the negative. However, she reports looking at the line of text and noticing the left half of the line was "not there." The patient also reports blurred or "cloudy," vision over the left side of her visual field. Ms. Rowland does not report dysarthria, aphasia, facial droop, hemiparesis, hemihypesthesia, poor balance, impairment of gait, dizziness, or confusion associated with the above symptoms. The patient does not report a headache associated with the above symptoms. On the day of admission, Ms. Rowland was seen by an pollution control technician. The pollution control technician instructed the patient to proceed to the emergency center at [facility] for further evaluation of her symptoms. The pollution control technician was concerned the patient had either experienced a stroke or had a detached retina in the left eye. Upon arrival in the emergency center, the patient was afebrile with a blood pressure of 178/79 mmHg and a pulse of 90 beats per minute. Documentation of the patient's neurological examination is unavailable for review at this time. A CT of the brain without contrast was performed while the patient was in the emergency center. This study revealed probable acute ischemia of the right medial occipital lobe. Ms. Rowland was subsequently admitted to [facility] as an inpatient for further evaluation and treatment of her symptoms. Ms. Rowland has not experienced similar symptoms previously. The patient was not taking either an anti-platelet or anticoagulant medication on a routine basis. REVIEW OF SYSTEMS: Blurred vision, loss of vision, pain near the right eye. Otherwise, a 12-point review of systems is negative. PAST MEDICAL HISTORY: Hypertension, gastroesophageal reflux disease, left breast cancer status post surgery, chemotherapy, and radiation, left hip fracture, macular degeneration. PAST SURGICAL HISTORY: Left breast lumpectomy, surgical repair of a left hip fracture, hemorrhoidectomy x2, bilateral cataract removal. PAST HOSPITALIZATIONS: Surgeries/procedures as listed, childbirth, fecal impaction. FAMILY MEDICAL HISTORY: Ms. Rowland's maternal grandmother is from a stroke. The patient's mother is from a stroke. Ms. Rowland's father is from metastatic lung cancer. The patient has 2 children, a son and a daughter, both of whom were living. The patient's son has experienced multiple strokes. Her daughter has a history of breast cancer. SOCIAL HISTORY: Ms. Rowland is a . She is retired. There is no reported current or prior tobacco, alcohol, or recreational drug use. HOME MEDICATIONS: 1. Amlodipine 5 mg by mouth daily. 2. Melatonin 5 mg by mouth at bedtime daily. 3. Metoprolol 50 mg by mouth daily. 4. Omeprazole 20 mg by mouth daily. ALLERGIES: PENICILLIN. NO KNOWN FOOD ALLERGIES. NO KNOWN ALLERGIES TO LATEX. NO KNOWN ALLERGIES TO IODINE OR OTHER CONTRAST MATERIALS. PHYSICAL EXAMINATION: VITAL SIGNS: Height 69 inches, weight 173 pounds, BMI 25.5 kg/m2. Blood pressure 148/73 mmHg, pulse 61 beats per minute, respiratory rate 18 breaths per minute, and oxygen saturation 93% on room air. GENERAL: The patient is awake and alert, does not appear distressed. Normal body habitus. HEENT: Normocephalic, atraumatic. Pupils are surgical. Moist mucous membranes. NECK: Supple. No appreciable thyromegaly. No appreciable carotid bruits. CARDIOVASCULAR: S1, S2, regular rate and rhythm. No murmurs, rubs, or gallops. RESPIRATORY: Clear to auscultation bilaterally. No wheezes, rhonchi, or rales. EXTREMITIES: The skin is warm and dry. No clubbing, cyanosis, or edema. The posterior tibial and dorsalis pedis pulses are 2+ and symmetric. SKIN: No rashes or lesions. NEUROLOGIC: Memory/Attention: The patient is awake and alert, oriented to person, place, time, and situation. Cranial Nerves: Cranial nerve I - not tested. Cranial nerve II, III, IV, and - pupils are surgical. Extraocular movements are intact. No nystagmus. No apparent left homonymous hemianopsia on visual field testing. Cranial nerve V - sensation to light touch and pinprick is intact in the bilateral V1 through V3 distributions. Strength of the temporalis and masseter muscles is within normal limits. Cranial nerve VII - the face is symmetric as are all facial movements. Strength is within normal limits. Cranial nerve VIII - hearing is intact to finger rub bilaterally. Cranial nerve IX, X - soft palate elevates equally and symmetrically. Cranial nerve XI - normal strength of the bilateral sternocleidomastoid and trapezius muscles. Cranial nerve XII - the tongue protrudes midline and moves symmetrically from [id number]. Strength: Bulk is normal. Strength is 5/5 in the bilateral deltoids, biceps, triceps, wrist flexors and extensors, finger flexors and extensors, intrinsic hand muscles, hip flexors, knee flexors and extensors, ankle dorsiflexion and plantar flexion, and intrinsic foot muscles. Tone is normal. DTRs: Deep tendon reflexes are 1+ and symmetric at the triceps, biceps, brachioradialis, and patellas. Deep tendon reflexes are absent and symmetric at the Achilles. Plantar responses are flexor bilaterally. Sensation: Sensation is intact to light touch and pinprick in both arms and both legs. Cerebellar: [id number] and heel-sharma movements are intact without dysmetria or other impairment. Gait: Deferred. Speech: Spontaneous speech is normal without appreciable dysarthria or aphasia. Repetition is intact. Involuntary movements: None. Pronator Drift: None. LABORATORY DATA: The most recent basic metabolic panel is unremarkable. The liver function panel collected on March 18, 2019, is within normal limits. Cardiac enzymes are negative x3. Total cholesterol 155, triglycerides 126, LDL cholesterol 95, HDL cholesterol 35. TSH 0.713. Hemoglobin A1c 6.0. The CBC with differential and platelets is within normal limits. The coagulation profile is within normal limits. DIAGNOSTIC STUDIES: 1. Electrocardiogram 03/18/2019: Normal sinus rhythm at 85 beats per minute. Voltage criteria for left ventricular hypertrophy are met. 2. Chest x-ray on 03/18/2019: Mildly hyperinflated lungs. No focal pneumonia or pulmonary edema. 3. CT of the brain without contrast on 03/18/2019: On my review, there is evidence of acute ischemia in the right medial occipital lobe. There is an old lacunar infarct in the bilateral caudate heads as well as the right cerebellum. There is mild diffuse cerebral atrophy with compensatory dilatation of the ventricles, appropriate for the patient's age. Their findings compatible with [id number] chronic small- vessel ischemic disease. 4. Echocardiogram on 03/19/2019: Ejection fraction 55%. Concentric left ventricular hypertrophy. Trace mitral regurgitation. Mild tricuspid regurgitation. 5. MRI of the brain without contrast on 03/19/2019: On my review, there is an acute stroke in the right posterior occipital lobe. Prior lacunar infarcts are seen in the head of the right caudate and bilateral cerebellar hemispheres. There is mild diffuse cerebral atrophy with compensatory dilatation of the ventricles, appropriate for the patient's age. There are scattered, mildly confluent T2/FLAIR hyperintense foci in the supratentorial white matter compatible with moderate chronic small vessel ischemic disease. 6. MRI of the brain and neck on 03/19/2019: There is occlusion of the right posterior cerebral artery at the P2 segment. Otherwise, there are no other hemodynamically significant stenoses of the intra or extracranial vasculature. ASSESSMENT AND PLAN: Ms. Rowland is an 83-year-old right-hand dominant woman with past medical history as detailed, admitted to [facility] on March 18, 2019, with an ischemic stroke in the right posterior cerebral artery distribution. The patient's neurological examination is detailed above. Her laboratory data and other diagnostic studies have been reviewed and are documented above. Ms. Rowland has completed a stroke evaluation. RECOMMENDATIONS: Are as follows: 1. Continue treatment with aspirin 81 mg by mouth daily for stroke prophylaxis. 2. The patient's goal blood pressure is less than 140/90 mmHg. At present, Ms. Brooks blood pressures are at goal. Continue with current antihypertensive medications. 3. The patient's goal total cholesterol is less than 200 with LDL of less than 70. The patient's LDL is mildly elevated. Treatment with simvastatin 20 mg by mouth at bedtime daily will be prescribed. 4. The patient's goal hemoglobin A1c is less than 7.0. Ms. Rowland's hemoglobin A1c 6.0. No further treatment is recommended. 5. Defer treatment of the remaining medical comorbidities to the primary and other services following the patient. 6. From a neurological standpoint, the patient may be discharged home. Thank you for this consultation. There are no other recommendations from the Neurology Service at this time. TIME SPENT: 50 minutes. Kera Lau MD CP/RAISSA /[id number] MTDD
--- NOTE | 2019-03-23 16:29 | Discharge Summary ---
ADMISSION DIAGNOSES: 1. Loss of left visual field. 2. 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 3. Controlled hypertension. 4. Gastroesophageal reflux disease. DISCHARGE DIAGNOSES: 1. Pain. 2. Hypertension. 3. Gastroesophageal reflux disease. 4. Left breast cancer with 14 months of chemo and seven weeks of radiation. PAST SURGICAL HISTORY: Hemorrhoid surgery x2, left hip surgery, left breast lumpectomy. FAMILY HISTORY: The patient's daughter and father have breast cancer. Stroke, the patient's son and mom had a stroke. SOCIAL HISTORY: Noncontributory. HOSPITAL COURSE: An 83-year-old female began having pain behind her right eye after sinus infection, then developed increasing problems with vision and that she was unable to focus. She also feels like colors stripped away or turned brown. She was unable to do her normal activities. She saw an roughing mill operator, who was concerned of a possible stroke. On admission, chest x-ray was negative. CT of the brain showed focal loss of white sweeney differentiation in the medial right occipital lobe concerning for acute ischemia. No hemorrhagic conversion. MRI of the brain, head and neck showed acute right posterior occipital cortical infarct. 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 Echo showed an EF of 55%. EKG normal sinus rhythm. The patient was assessed by Neurology and cleared for discharge. Her TSH, A1c, and lipid panel were within normal limits. She will discharge home with new prescriptions for aspirin and metoprolol. The patient and daughter understand discharge instructions and agrees to plan. Vital signs stable. The patient afebrile. Dictated by Vira Renee, ATILIO MD MELIZA Weaver/RAISSA /[id number]
== END 2019-03-21 14:53 | disposition home or self-care (01) | DRG 66 ==
LOC: ER 15:39 → ERHOLD 20:36 → MED/SURG3 22:52
PROVIDERS: ADMIT Internal Medicine; ATTEND Internal Medicine
DX: I63.531 Cerebral infarction due to unspecified occlusion or stenosis of right posterior cerebral artery (principal); H53.461 Homonymous bilateral field defects, right side; H54.62 Unqualified visual loss, left eye, normal vision right eye; I10 Essential (primary) hypertension; K21.9 Gastro-esophageal reflux disease without esophagitis; Z85.3 Personal history of malignant neoplasm of breast; H49.21 Sixth [abducent] nerve palsy, right eye; I65.01 Occlusion and stenosis of right vertebral artery
CPT/HCPCS: 36415; 70450; 70544; 70547; 70551; 71046; 80048; 80053; 80061; 82550; 82553; 83036; 83735; 84100; 84443; 84484; 85025; 85610; 85730; 93005; 93306; 99284